=== PATIENT | female | born 1995 | race Caucasian/White ===

== ENCOUNTER 2017-02-25 14:19 | Inpatient (IN) | payer MEDICAID ==
[2017-02-25] MEDS ORDERED: Ondansetron 4 MG/2 ML SDV IV PRN (14:43)
[2017-02-25] MEDS ORDERED: Methylergonovine 0.2 MG/1 ML Amp IM PRN (14:43)
[2017-02-25] MEDS ORDERED: Carboprost Tromethamine 250 MCG/1 ML Amp IM PRN (14:43)
[2017-02-25] MEDS ORDERED: Lactated Ringers 500 ML IV ONE (14:43)
[2017-02-25] MEDS ORDERED: Sodium Chloride 0.9% 10 ML Syringe FLUSH PRN (14:43)
[2017-02-25] MEDS ORDERED: Misoprostol 400 MCG (4 X 100 MCG TAB) RECTAL PRN (14:43)
[2017-02-25] MEDS ORDERED: Lidocaine 1% 30 ML SDV INJECT PRN (14:43)
[2017-02-25] MEDS ORDERED: Acetaminophen 325 MG Tab PO PRN (14:43)
[2017-02-25] MEDS: Lactated Ringers 1,000 ML IV SCH ×2 (14:50→17:49)
[2017-02-25] MEDS ORDERED: Penicillin G Potassium 5 MILLUNITS in Sodium Chloride 0.9% 100 ML IV ONE (16:00)
[2017-02-25] MEDS ORDERED: Oxytocin/Normal Saline 30 UNIT/500 ML BAG IV SCH (16:15)
--- NOTE | 2017-02-25 18:17 | PCM.SN ---
- Free Text/Narrative Note: Labor and Delivery Admission H & P Admitting Physician: Dr. IRENE VU MD Personal Physician: Dr. IRENE UV MD Date: 02/25/2017 Subjective: C/C: Loss of fluids HPI: Marsha Gill is a 21 y.o. at 39w0d who presents today with the complaint of loss of fluids at 2:17 pm today. Fluids were clear. She denies vaginal bleeding. She lost her mucous plug on Thursday. She denies contractions. Baby is moving well. She denies headache, vision changes, SOB, chest pain, RUQ pain, or GI complaints. Labs: Maternal blood type O pos Antibody screen: negative Hepatitis B negative HIV negative Rubella: Immune RPR non reactive GC/Chlamydia negative GBS positive Glucose 28 weeks: 118 at 1 hr care: good. complications: none OB History Para Term AB Living 2 1 1 1 SAB TAB Ectopic Multiple Live Births 0 1 Past Medical History: Diagnosis Date Anxiety with depression Zoloft made things worse. Not on meds currently. Body piercing Ears, lip. No IVDU, no transfusions. Tattoos x2. Former smoker 09/27/2016 Quit smoking in her second . History of chicken pox As a child Puberty Menarche age 10. Q 28-32 days. Flow 7d. No past surgical history on file. No Known Allergies Social History Social History Marital status: Spouse name: N/A Number of children: N/A Years of education: N/A Occupational History Not on file. Social History Main Topics Smoking status: Former Smoker Packs/day: 0.50 Years: 2.00 Types: Cigarettes Quit date: 09/22/2016 Smokeless tobacco: Never Used Comment: Only a couple puffs here and there, trying to quit. Alcohol use Yes Comment: Not during . Drug use: Unknown Sexual activity: Yes Partners: Male Other Topics Concern Not on file Social History Narrative 09/26/16 to [place]. They moved here in June 2014 from [place] for lower cost of living and work opportunities. Marsha stays at home with their son , Rene born 04/13/14. 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 Nilton has panic attacks, fainting spells when he relaxes, migraines. His mother hs Theron's thyroiditis and his grandmother had thyroid cancer, he has 2 cousins with brain cancer, diabetes and heart disease also run in his family. They are expecting their second child together. Trying to quit smoking. Alcohol exposure once when she was about 2-3 weeks along she had about 6 drinks. 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 No Known Diseases Father Other Sister PCOS No Known Diseases Brother Cancer Maternal Grandmother Hogkin's lymphpma Other Maternal Grandfather [place]helomia Lung Cancer Paternal Grandmother not a smoker No Known Diseases Sister No Known Diseases Sister Other Cousin Autistic. Defects Neg Hx Multiple Births Neg Hx Anesth Problems Neg Hx Cystic Fibrosis Neg Hx Seizures Neg Hx Bleeding Prob Neg Hx Clotting Disorder Neg Hx Review of Systems Constitutional: negative for chills and fevers HEENT: negative for vision changes, headache, nasal congestion, cough, sore throat Respiratory: negative for cough, sputum and shortness of breath Cardiovascular: negative for chest pain, chest pressure/discomfort, lower extremity swelling, redness, or pain. Gastrointestinal: negative for epigastric pain, abdominal pain, change in bowel habits, nausea and vomiting Genitourinary: negative for dysuria, frequency and hematuria Behavioral/Psych: negative for anxiety and depression. Objective: Vitals: LMP 06/11/2016 (Exact Date), BP 125/65, pulse 73, RR 16, Temp 98.6 F General: alert, oriented, no acute distress Lungs: clear to auscultation bilaterally. No wheezing or rales Heart: regular rate and rhythm, no murmur, rub or gallop Abdomen: gravid, non-tender, non distended, bowel sounds present Extremities: Trace edema FHT: 125 BPM, moderate variability, accelerations present, no decelerations Primrose: contractions every 2 to 3 minutes. Presentation: Cephalic Cervix: Dilation: 3 cm Effacement: 25% Assessment: 21 y.o. at 39w0d with SROM. GBS positive FHR: Category I Patient Active Problem List Neck pain Uterine size date discrepancy, second trimester Encounter for supervision of other normal , third trimester GBS (group B Streptococcus carrier), +RV culture, currently Plan: Admit to L&D for induction of labor in normal term due to SROM. Anticipate . Penicillin for GBS status. The patient was staffed with MD VELIA COREAS MD, PGY 3, [facility] 02/25/2017 5:39 PM
[2017-02-25] MEDS: Penicillin G Potassium 3 MILLUNITS in Sodium Chloride 0.9% 100 ML IV SCH (20:19)
[2017-02-26] MEDS: Penicillin G Potassium 3 MILLUNITS in Sodium Chloride 0.9% 100 ML IV SCH ×2 (00:12→04:00)
[2017-02-26] MEDS ORDERED: fentaNYL 100 MCG/2 ML SDV ONE (00:13)
--- NOTE | 2017-02-26 00:36 | PCM.SN ---
- Free Text/Narrative Note: Intrathecal. Sitting position, sterile prep and drape. 1% lidocaine w bicarb for skinwheal to L3 L4 interspace. Introducer, 24 ga pencan x 1. Pos CSF, neg heme, neg parasthesia. 20 mcg PF sufenta, 30 mcg pf fentanyl, 0.4 ml pf ns and 6 mg of 0.75% pf bupivacaine injected after CSF aspiration. Pt to L lateral position Procedure time 0015 to 0040
[2017-02-26] MEDS ORDERED: Aluminum Hydroxide/Magnesium Hydroxide/Simethicone Susp 30 ML Cup PO PRN (02:17)
[2017-02-26] MEDS ORDERED: Misoprostol 400 MCG (4 X 100 MCG TAB) RECTAL PRN (02:17)
[2017-02-26] MEDS ORDERED: Sodium Chloride 0.9% 10 ML Syringe FLUSH PRN (02:17)
[2017-02-26] MEDS ORDERED: Zolpidem 5 MG Tab PO PRN (02:17)
[2017-02-26] MEDS ORDERED: Benzocaine/Menthol 20%-0.5% Spray 56 GM Canister TOP PRN (02:17)
[2017-02-26] MEDS ORDERED: Acetaminophen 325 MG Tab PO PRN (02:17)
[2017-02-26] MEDS ORDERED: Simethicone 80 MG Tab.Chew PO PRN (02:17)
[2017-02-26] MEDS ORDERED: Carboprost Tromethamine 250 MCG/1 ML Amp IM PRN (02:17)
--- NOTE | 2017-02-26 02:34 | PCM.DEL ---
<Chante Mota - Last Filed: 02/26/17 02:28> L & D Note - General Info Date of Service: 02/26/17 Mother's Due Date: 03/04/17 - Delivery Note Labor: Spontaneous Delivery Outcome: Livebirth Delivery Method: Spontaneous Vaginal Delivery-Single Infant Delivery Mode: Spontaneous Presentation: Right Occiput Anterior (SRIKANTH) Nuchal Cord: None Prep: Povidone-Iodine (Betadine Anesthesia Type: Intrathecal Amniotic Fluid Description: Clear Laceration: 2nd Degree (left perineal, and small right labial closed with figure 8, left labial closed with running. ) Suture type: Vicryl Suture size: 3-0 Placenta: Intact, Spontaneous Cord: 3 Vessels Estimated Blood Loss: 250 Resuscitation Needed: No Steptoe: Bulb Syringe, Stimulated, Jerome Used Provider: Sil Chew Score 1 min: 8 Score 5 min: 9 Second Stage Interventions: Reports: Encouragement Given, Pushing Effectively, Pushing, Feet in Foot Rests Delivery Comments (Free Text/Narrative):: Marsha Gill is a 21 year old female G2 now P2 at 39w1d who presented with spontaneous ROM with clear fluids on 02/25/17 at about 14:17. Category 1 tracing on admission. She was dilated to 3 cm on admission. She progressed to complete dilation by 0105 on 02/26/17, with augmentation of pitocin. She began pushing at about 0115. Delivered a liveborn female infant from the SRIKANTH position , after pushing about 5 times, over 2nd degree perineal laceration on the left of midline. A left labial tear and right vaginal laceration were also present. Vigorous with spontaneous cry. Placenta delivered spontaneously intact with a 3 vessel cord. IV Pitocin was started shortly after delivery of placenta. EBL 250 mL. 2nd degree perineal laceration repaired with 3-0 Vicryl suture. Left labial laceration repaired with simple running suture. Small right vaginal laceration closed with figure of 8 stitch. Hemostasis confirmed. Mother and doing well. - Patient Data Vitals - Most Recent: Last Vital Signs Temp 98.7 F 02/25/17 19:20 Pulse 76 02/25/17 21:20 Resp 14 02/25/17 20:20 BP 134/75 02/25/17 21:20 Pulse Ox Weight - Most Recent: 99.79 kg I&O - Last 24 Hours: Intake & Output 02/25/17 02/25/17 02/26/17 14:59 22:59 06:59 Intake Total 1500 Balance 1500 Lab Results Last 24 Hours: Laboratory Results - last 24 hr 02/25/17 Range/Units 15:00 WBC 11.0 H (5.0-10.0) 10^3/uL RBC 4.03 L (4.2-5.4) 10^6/uL Hgb 12.0 (12.0-16.0) g/dL Hct 36.5 L (37.0-47.0) % MCV 90.6 (80-100) fL MCH 29.8 (27.0-34.0) pg MCHC 32.9 L (33.0-35.0) g/dL Plt Count 204 (150-450) 10^3/uL Med Orders - Current: Current Medications Acetaminophen (Tylenol) 650 mg PO Q4H PRN PRN Reason: Pain (Mild 1-3) and fever Carboprost Tromethamine (Hemabate Ds) 250 mcg IM ASDIRECTED PRN PRN Reason: HEMORRHAGE Lactated Ringer's (Ringers, Lactated) 1,000 mls @ 125 mls/hr IV ASDIRECTED LUCRETIA Last Admin: 02/25/17 17:49 Dose: 125 mls/hr Penicillin G Potassium 3 (millunits/ Sodium Chloride) 100 mls @ 200 mls/hr IV Q4H LUCRETIA Last Admin: 02/26/17 00:12 Dose: 200 mls/hr Oxytocin/Sodium Chloride (Pitocin In Ns 30 Unit/500 Ml) 30 unit in 500 mls @ 2 mls/hr IV TITRATE LUCRETIA; 2 MUNITS/MIN PRN Reason: Protocol Last Titration: 02/26/17 02:20 Dose: 125 mls/hr Lidocaine HCl (Xylocaine-Mpf 1%) 10 ml INJECT ASDIRECTED PRN PRN Reason: Perineal Repair Methylergonovine Maleate (Methergine) 0.2 mg IM ASDIRECTED PRN PRN Reason: Hemorrhage Misoprostol (Cytotec) 800 mcg RECTAL ASDIRECTED PRN PRN Reason: Hemorrhage Ondansetron HCl (Zofran) 4 mg IV Q4H PRN PRN Reason: Nausea/Vomiting Last Admin: 02/26/17 00:00 Dose: 4 mg Sodium Chloride (Saline Flush) 10 ml FLUSH ASDIRECTED PRN PRN Reason: Keep Vein Open Discontinued Medications Fentanyl (Sublimaze) Confirm Administered Dose 100 mcg .ROUTE .STK-MED ONE Stop: 02/26/17 00:14 Last Admin: 02/26/17 00:24 Dose: 100 mcg Lactated Ringer's (Ringers, Lactated) 500 mls @ 999 mls/hr IV .BOLUS ONE Stop: 02/25/17 15:13 Last Admin: 02/26/17 00:17 Dose: 999 mls/hr Penicillin G Potassium 5 (millunits/ Sodium Chloride) 100 mls @ 200 mls/hr IV ONETIME ONE Stop: 02/25/17 16:29 Last Admin: 02/25/17 15:59 Dose: 200 mls/hr Sufentanil Citrate (Sufenta) Confirm Administered Dose 50 mcg .ROUTE .STK-MED ONE Stop: 02/26/17 00:14 - Problem List & Annotations (1) (normal spontaneous vaginal delivery) SNOMED Code(s): 10921610 Code(s): O80 - ENCOUNTER FOR FULL-TERM UNCOMPLICATED DELIVERY Status: Acute (2) Perineal laceration during delivery, delivered SNOMED Code(s): 605014685 Code(s): O70.9 - PERINEAL LACERATION DURING DELIVERY, UNSPECIFIED Status: Acute - Problem List Review Problem List Initiated/Reviewed/Updated: Yes - My Orders Last 24 Hours: My Active Orders 02/26/17 02:13 Patient Status Manage Transfer [TRANSFER] Routine 02/26/17 02:17 Notify Provider Vital Signs OB [RC] ASDIRECTED Up ad Carol [RC] ASDIRECTED Vital Signs [RC] PFP Consult to Lead Ios Developer [CONS] Routine Acetaminophen [Tylenol] 650 mg PO Q6H PRN Alum Hydrox/Mag Hydrox/Simeth [Mag-Al Plus] 30 ml PO Q8H PRN Benzocaine/Menthol [Dermoplast Pain Relief Forreston] See Dose Instructions TOP Q4H PRN Carboprost Tromethamine [Hemabate DS] 250 mcg IM ASDIRECTED PRN Docusate Sodium [Colace] 100 mg PO BID PRN Ibuprofen [Motrin] 800 mg PO Q8H PRN Misoprostol [Cytotec] 800 mcg RECTAL ONETIME PRN Simethicone 80 mg PO Q4H PRN Sodium Chloride 0.9% [Saline Flush] 10 ml FLUSH ASDIRECTED PRN Zolpidem [Ambien] 5 mg PO BEDTIME PRN Assess Lochia [WOMSER] Per Unit Routine Assess Uterine Involution [WOMSER] Per Unit Routine Breast Pump [WOMSER] Per Unit Routine Ice Therapy [OM.PC] Per Unit Routine Perineal Care [OM.PC] Per Unit Routine Saline Lock Insert [OM.PC] Urgent Sitz Bath [OM.PC] Per Unit Routine Resuscitation Status Routine 02/26/17 09:00 Vit with Ca/FA/Iron [ Plus Iron] 1 each PO DAILY 02/26/17 Dinner Regular Diet [DIET] 02/27/17 08:00 CBC W/O DIFF,HEMOGRAM [HEME] Routine <Sil Nuñez - Last Filed: 03/02/17 22:27> - Patient Data Vitals - Most Recent: Last Vital Signs Temp 98.7 F 02/27/17 08:00 Pulse 92 02/27/17 08:00 Resp 18 02/27/17 08:00 BP 121/59 L 02/27/17 08:00 Pulse Ox 100 02/27/17 08:00 Med Orders - Current: Current Medications Discontinued Medications Acetaminophen (Tylenol) 650 mg PO Q4H PRN PRN Reason: Pain (Mild 1-3) and fever Acetaminophen (Tylenol) 650 mg PO Q6H PRN PRN Reason: mild pain or fever Al Hydroxide/Mg Hydroxide (Mag-Al Plus) 30 ml PO Q8H PRN PRN Reason: Heartburn Benzocaine/Menthol (Dermoplast Pain Relief Forreston) 0 gm TOP Q4H PRN PRN Reason: Perineal comfort measures Last Admin: 02/26/17 08:42 Dose: 1 applic Carboprost Tromethamine (Hemabate Ds) 250 mcg IM ASDIRECTED PRN PRN Reason: HEMORRHAGE Carboprost Tromethamine (Hemabate Ds) 250 mcg IM ASDIRECTED PRN PRN Reason: Excessive vaginal bleeding Docusate Sodium (Colace) 100 mg PO BID PRN PRN Reason: Constipation Last Admin: 02/27/17 08:24 Dose: 100 mg Fentanyl (Sublimaze) Confirm Administered Dose 100 mcg .ROUTE .STK-MED ONE Stop: 02/26/17 00:14 Last Admin: 02/26/17 00:24 Dose: 100 mcg Fentanyl (Sublimaze) 30 mcg ITHECAL .STK-MED ONE Stop: 02/27/17 11:30 Lactated Ringer's (Ringers, Lactated) 500 mls @ 999 mls/hr IV .BOLUS ONE Stop: 02/25/17 15:13 Last Admin: 02/26/17 00:17 Dose: 999 mls/hr Lactated Ringer's (Ringers, Lactated) 1,000 mls @ 125 mls/hr IV ASDIRECTED LUCRETIA Last Admin: 02/25/17 17:49 Dose: 125 mls/hr Penicillin G Potassium 3 (millunits/ Sodium Chloride) 100 mls @ 200 mls/hr IV Q4H LUCRETIA Last Admin: 02/26/17 04:00 Dose: Not Given Penicillin G Potassium 5 (millunits/ Sodium Chloride) 100 mls @ 200 mls/hr IV ONETIME ONE Stop: 02/25/17 16:29 Last Admin: 02/25/17 15:59 Dose: 200 mls/hr Oxytocin/Sodium Chloride (Pitocin In Ns 30 Unit/500 Ml) 30 unit in 500 mls @ 2 mls/hr IV TITRATE LUCRETIA; 2 MUNITS/MIN PRN Reason: Protocol Last Titration: 02/26/17 03:16 Dose: Infused Ibuprofen (Motrin) 800 mg PO Q8H PRN PRN Reason: Mild Pain or Fever Last Admin: 02/27/17 08:24 Dose: 800 mg Lidocaine HCl (Xylocaine-Mpf 1%) 10 ml INJECT ASDIRECTED PRN PRN Reason: Perineal Repair Methylergonovine Maleate (Methergine) 0.2 mg IM ASDIRECTED PRN PRN Reason: Hemorrhage Misoprostol (Cytotec) 800 mcg RECTAL ASDIRECTED PRN PRN Reason: Hemorrhage Misoprostol (Cytotec) 800 mcg RECTAL ONETIME PRN PRN Reason: Hemorrhage Ondansetron HCl (Zofran) 4 mg IV Q4H PRN PRN Reason: Nausea/Vomiting Last Admin: 02/26/17 00:00 Dose: 4 mg Prenat Multivit/[place]/Iron/Folic Ac ( Plus Iron) 1 each PO DAILY LUCRETIA Last Admin: 02/27/17 08:24 Dose: 1 each Simethicone (Simethicone) 80 mg PO Q4H PRN PRN Reason: Gas Sodium Chloride (Saline Flush) 10 ml FLUSH ASDIRECTED PRN PRN Reason: Keep Vein Open Sodium Chloride (Saline Flush) 10 ml FLUSH ASDIRECTED PRN PRN Reason: Keep Vein Open Sufentanil Citrate (Sufenta) Confirm Administered Dose 50 mcg .ROUTE .STK-MED ONE Stop: 02/26/17 00:14 Last Admin: 02/27/17 10:36 Dose: Not Given Sufentanil Citrate (Sufenta) 20 mcg ITHECAL .STK-MED ONE Stop: 02/27/17 11:30 Zolpidem Tartrate (Ambien) 5 mg PO BEDTIME PRN PRN Reason: Insomnia - Plan Plan:: Patient seen and examined. Agree with note by Dr. Mota written on my behalf. - [facility] 03/02/17 [id number].
[2017-02-26] MEDS: Ibuprofen 800 MG Tab PO PRN ×2 (06:33→20:09)
[2017-02-26] MEDS: Prenatal Multivitamin with Calcium/Folic Acid/Iron Tab PO SCH (08:42)
[2017-02-26] MEDS: Docusate Sodium 100 MG Cap PO PRN ×2 (08:42→20:09)
[2017-02-27] MEDS: Ibuprofen 800 MG Tab PO PRN (08:24)
[2017-02-27] MEDS: Prenatal Multivitamin with Calcium/Folic Acid/Iron Tab PO SCH (08:24)
[2017-02-27] MEDS: Docusate Sodium 100 MG Cap PO PRN (08:24)
[2017-02-27] MEDS ORDERED: fentaNYL 100 MCG/2 ML SDV ITHECAL ONE (11:29)
--- NOTE | 2017-02-28 12:59 | PCM.SN ---
<Chante Teixeira - Last Filed: 02/28/17 13:00> - Free Text/Narrative Note: Obstetrics Progress Note Post Day Number 1 Patient: Marsha Gill Admit Date: 02/25/17 Today's Date: 02/27/17 Subjective: Marsha Gill is a 21 y.o. female who is day 1 s/p . She is ambulating, voiding, tolerating regular diet all without difficulty. She reports her lochia is minimal in degree . She is . She is up and ambulating well, tolerating PO intake and using the bathroom, good bowel sounds and passing gas, and bowel movement at this time. She has no complaints. Objective: Vitals: BP 121/59, Pulse 92, RR 18, Temp 98.7 F General: healthy, alert, no distress, cooperative, smiling Lungs: clear to auscultation bilaterally Heart: regular rate and rhythm, S1, S2 normal, no murmur, click, rub or gallop Abdomen: soft, non-tender; bowel sounds normal; no masses, no organomegaly Uterus is Firm, nontender at 1 cm below the umbilicus. Lower extremities are nontender and have trace edema. Skin: is warm and dry, well perfused no visible lesions Lab Results: Hgb 10.9 PLT 206 RPR: non reactive Rubella: Immune GBS: positive Hbs: negative Assessment/Plan: Patient is stable and comfortable, no acute distress. She is day number one status post normal spontaneous vaginal delivery. No signs of anemia as her last Hb was 10.9 and she is completely asymptomatic. Plan will be to encourage ambulation. Advance diet as tolerated. Saline lock IV with good oral intake. Continue with advancing routine post cares. Plan for discharge today. Other possible issues to note: Perineal laceration, 2nd degree - repaired CHANTE TEIXEIRA MD, PGY 3, [facility] <Sil Nuñez - Last Filed: 03/02/17 22:28> - Free Text/Narrative Note: Patient seen and examined. Agree with note by Dr. Teixeira written on my behalf. - [facility] 03/02/17 [id number]
--- NOTE | 2017-02-28 13:08 | PCM.DCSUM1 ---
<Chante Mota - Last Filed: 02/28/17 13:04> Discharge Summary - Hospital Course Free Text/Narrative:: Marsha Gill is a 21 year old female at 39w1d who presented with spontaneous ROM with clear fluids on 02/25/17 at about 14:17. Category 1 tracing on admission. She was dilated to 3 cm on admission. She progressed to complete dilation by 0105 on 02/26/17, with augmentation of pitocin. She began pushing at about 0115. Delivered a liveborn female from the SRIKANTH position , after pushing about 5 times, over 2nd degree perineal laceration on the left of midline. A left labial tear and right vaginal laceration were also present. Vigorous with spontaneous cry. Placenta delivered spontaneously intact with a 3 vessel cord. IV Pitocin was started shortly after delivery of placenta. EBL 250 mL. 2nd degree perineal laceration repaired with 3-0 Vicryl suture. Left labial laceration repaired with simple running suture. Small right vaginal laceration closed with figure of 8 stitch. Hemostasis confirmed. Mother and infant doing well. - Discharge Data Discharge Date: 02/27/17 Discharge Disposition: Home, Self-Care 01 Condition: Good - Discharge Diagnosis/Problem(s) (1) (normal spontaneous vaginal delivery) SNOMED Code(s): 94870924 ICD Code: O80 - ENCOUNTER FOR FULL-TERM UNCOMPLICATED DELIVERY Status: Acute (2) Perineal laceration during delivery, delivered SNOMED Code(s): 217855416 ICD Code: O70.9 - PERINEAL LACERATION DURING DELIVERY, UNSPECIFIED Status: Acute - Patient Summary/Data Consults: Consultations 02/26/17 02:17 Consult to Heel Seat Pounder [CONS] Routine - Patient Instructions Diet: Heart Healthy Diet Activity: As Tolerated Activity, Other: pelvic rest for 6-8 weeks Driving: May Drive Today Showering/Bathing: May Shower Notify Provider of: Fever, Increased Pain, Swelling and Redness, Drainage, Nausea and/or Vomiting - Discharge Plan Home Medications: Home Meds Pnv No.122/Iron/Folic Acid [ Multi Tablet] 1 tab PO DAILY 02/22/17 [ History] Patient Handouts: Home Care Instructions for Mom, Vaginal Delivery, Care After Referrals: Sil Nuñez MD [Primary Care Provider] - (Need to schedule 6 week post- follow-up appointment) - General Info Functional Status: Reports: Pain Controlled - Review of Systems General: Reports: No Symptoms HEENT: Reports: No Symptoms Pulmonary: Reports: No Symptoms Cardiovascular: Reports: No Symptoms Gastrointestinal: Reports: No Symptoms Genitourinary: Reports: No Symptoms - Patient Data Vitals - Most Recent: Last Vital Signs Temp 98.7 F 02/27/17 08:00 Pulse 92 02/27/17 08:00 Resp 18 02/27/17 08:00 BP 121/59 L 02/27/17 08:00 Pulse Ox 100 02/27/17 08:00 Weight - Most Recent: 99.79 kg Med Orders - Current: Current Medications Discontinued Medications Acetaminophen (Tylenol) 650 mg PO Q4H PRN PRN Reason: Pain (Mild 1-3) and fever Acetaminophen (Tylenol) 650 mg PO Q6H PRN PRN Reason: mild pain or fever Al Hydroxide/Mg Hydroxide (Mag-Al Plus) 30 ml PO Q8H PRN PRN Reason: Heartburn Benzocaine/Menthol (Dermoplast Pain Relief [place]) 0 gm TOP Q4H PRN PRN Reason: Perineal comfort measures Last Admin: 02/26/17 08:42 Dose: 1 applic Carboprost Tromethamine (Hemabate Ds) 250 mcg IM ASDIRECTED PRN PRN Reason: HEMORRHAGE Carboprost Tromethamine (Hemabate Ds) 250 mcg IM ASDIRECTED PRN PRN Reason: Excessive vaginal bleeding Docusate Sodium (Colace) 100 mg PO BID PRN PRN Reason: Constipation Last Admin: 02/27/17 08:24 Dose: 100 mg Fentanyl (Sublimaze) Confirm Administered Dose 100 mcg .ROUTE .STK-MED ONE Stop: 02/26/17 00:14 Last Admin: 02/26/17 00:24 Dose: 100 mcg Fentanyl (Sublimaze) 30 mcg ITHECAL .STK-MED ONE Stop: 02/27/17 11:30 Lactated Ringer's (Ringers, Lactated) 500 mls @ 999 mls/hr IV .BOLUS ONE Stop: 02/25/17 15:13 Last Admin: 02/26/17 00:17 Dose: 999 mls/hr Lactated Ringer's (Ringers, Lactated) 1,000 mls @ 125 mls/hr IV ASDIRECTED LUCRETIA Last Admin: 02/25/17 17:49 Dose: 125 mls/hr Penicillin G Potassium 3 (millunits/ Sodium Chloride) 100 mls @ 200 mls/hr IV Q4H LUCRETIA Last Admin: 02/26/17 04:00 Dose: Not Given Penicillin G Potassium 5 (millunits/ Sodium Chloride) 100 mls @ 200 mls/hr IV ONETIME ONE Stop: 02/25/17 16:29 Last Admin: 02/25/17 15:59 Dose: 200 mls/hr Oxytocin/Sodium Chloride (Pitocin In Ns 30 Unit/500 Ml) 30 unit in 500 mls @ 2 mls/hr IV TITRATE LUCRETIA; 2 MUNITS/MIN PRN Reason: Protocol Last Titration: 02/26/17 03:16 Dose: Infused Ibuprofen (Motrin) 800 mg PO Q8H PRN PRN Reason: Mild Pain or Fever Last Admin: 02/27/17 08:24 Dose: 800 mg Lidocaine HCl (Xylocaine-Mpf 1%) 10 ml INJECT ASDIRECTED PRN PRN Reason: Perineal Repair Methylergonovine Maleate (Methergine) 0.2 mg IM ASDIRECTED PRN PRN Reason: Hemorrhage Misoprostol (Cytotec) 800 mcg RECTAL ASDIRECTED PRN PRN Reason: Hemorrhage Misoprostol (Cytotec) 800 mcg RECTAL ONETIME PRN PRN Reason: Hemorrhage Ondansetron HCl (Zofran) 4 mg IV Q4H PRN PRN Reason: Nausea/Vomiting Last Admin: 02/26/17 00:00 Dose: 4 mg Prenat Multivit/Biological Photographer/Iron/Folic Ac ( Plus Iron) 1 each PO DAILY [facility] Last Admin: 02/27/17 08:24 Dose: 1 each Simethicone (Simethicone) 80 mg PO Q4H PRN PRN Reason: Gas Sodium Chloride (Saline Flush) 10 ml FLUSH ASDIRECTED PRN PRN Reason: Keep Vein Open Sodium Chloride (Saline Flush) 10 ml FLUSH ASDIRECTED PRN PRN Reason: Keep Vein Open Sufentanil Citrate (Sufenta) Confirm Administered Dose 50 mcg .ROUTE .STK-MED ONE Stop: 02/26/17 00:14 Last Admin: 02/27/17 10:36 Dose: Not Given Sufentanil Citrate (Sufenta) 20 mcg ITHECAL .STK-MED ONE Stop: 02/27/17 11:30 Zolpidem Tartrate (Ambien) 5 mg PO BEDTIME PRN PRN Reason: Insomnia - Exam General: Reports: Alert, Oriented HEENT: Reports: Pupils Equal, Pupils Reactive, EOMI, Mucous Membr. Moist/[place] Neck: Reports: Supple Lungs: Reports: Clear to Auscultation, Normal Respiratory Effort Cardiovascular: Reports: Regular Rate, Regular Rhythm GI/Abdominal Exam: Normal Bowel Sounds, Soft, Non-Tender, No Distention, Other ( uterus firm, non tender, at 3 cm below umbilicus ) Skin: Reports: Warm, Dry, Intact Psy/Mental Status: Reports: Alert, Normal Affect, Normal Mood *Q Meaningful Use (DIS) - VTE *Q VTE Criteria *Q: - Stroke *Q Stroke Criteria *Q: - AMI *Q AMI Criteria *Q: <Sil Nuñez - Last Filed: 03/02/17 22:30> Discharge Summary - Patient Summary/Data Consults: Consultations 02/26/17 02:17 Consult to Heel Seat Pounder [CONS] Routine - Discharge Summary/Plan Comment Discharge Summary/Plan Comment: Patient seen and examined. Agree with note by Dr. Mota written on my behalf. - [facility] 03/02/[id number] - Patient Data Vitals - Most Recent: Last Vital Signs Temp 98.7 F 02/27/17 08:00 Pulse 92 02/27/17 08:00 Resp 18 02/27/17 08:00 BP 121/59 L 02/27/17 08:00 Pulse Ox 100 02/27/17 08:00 Med Orders - Current: Current Medications Discontinued Medications Acetaminophen (Tylenol) 650 mg PO Q4H PRN PRN Reason: Pain (Mild 1-3) and fever Acetaminophen (Tylenol) 650 mg PO Q6H PRN PRN Reason: mild pain or fever Al Hydroxide/Mg Hydroxide (Mag-Al Plus) 30 ml PO Q8H PRN PRN Reason: Heartburn Benzocaine/Menthol (Dermoplast Pain Relief [place]) 0 gm TOP Q4H PRN PRN Reason: Perineal comfort measures Last Admin: 02/26/17 08:42 Dose: 1 applic Carboprost Tromethamine (Hemabate Ds) 250 mcg IM ASDIRECTED PRN PRN Reason: HEMORRHAGE Carboprost Tromethamine (Hemabate Ds) 250 mcg IM ASDIRECTED PRN PRN Reason: Excessive vaginal bleeding Docusate Sodium (Colace) 100 mg PO BID PRN PRN Reason: Constipation Last Admin: 02/27/17 08:24 Dose: 100 mg Fentanyl (Sublimaze) Confirm Administered Dose 100 mcg .ROUTE .STK-MED ONE Stop: 02/26/17 00:14 Last Admin: 02/26/17 00:24 Dose: 100 mcg Fentanyl (Sublimaze) 30 mcg ITHECAL .STK-MED ONE Stop: 02/27/17 11:30 Lactated Ringer's (Ringers, Lactated) 500 mls @ 999 mls/hr IV .BOLUS ONE Stop: 02/25/17 15:13 Last Admin: 02/26/17 00:17 Dose: 999 mls/hr Lactated Ringer's (Ringers, Lactated) 1,000 mls @ 125 mls/hr IV ASDIRECTED LUCRETIA Last Admin: 02/25/17 17:49 Dose: 125 mls/hr Penicillin G Potassium 3 (millunits/ Sodium Chloride) 100 mls @ 200 mls/hr IV Q4H LUCRETIA Last Admin: 02/26/17 04:00 Dose: Not Given Penicillin G Potassium 5 (millunits/ Sodium Chloride) 100 mls @ 200 mls/hr IV ONETIME ONE Stop: 02/25/17 16:29 Last Admin: 02/25/17 15:59 Dose: 200 mls/hr Oxytocin/Sodium Chloride (Pitocin In Ns 30 Unit/500 Ml) 30 unit in 500 mls @ 2 mls/hr IV TITRATE LUCRETIA; 2 MUNITS/MIN PRN Reason: Protocol Last Titration: 02/26/17 03:16 Dose: Infused Ibuprofen (Motrin) 800 mg PO Q8H PRN PRN Reason: Mild Pain or Fever Last Admin: 02/27/17 08:24 Dose: 800 mg Lidocaine HCl (Xylocaine-Mpf 1%) 10 ml INJECT ASDIRECTED PRN PRN Reason: Perineal Repair Methylergonovine Maleate (Methergine) 0.2 mg IM ASDIRECTED PRN PRN Reason: Hemorrhage Misoprostol (Cytotec) 800 mcg RECTAL ASDIRECTED PRN PRN Reason: Hemorrhage Misoprostol (Cytotec) 800 mcg RECTAL ONETIME PRN PRN Reason: Hemorrhage Ondansetron HCl (Zofran) 4 mg IV Q4H PRN PRN Reason: Nausea/Vomiting Last Admin: 02/26/17 00:00 Dose: 4 mg Prenat Multivit/Meagher/Iron/Folic Ac ( Plus Iron) 1 each PO DAILY LUCRETIA Last Admin: 02/27/17 08:24 Dose: 1 each Simethicone (Simethicone) 80 mg PO Q4H PRN PRN Reason: Gas Sodium Chloride (Saline Flush) 10 ml FLUSH ASDIRECTED PRN PRN Reason: Keep Vein Open Sodium Chloride (Saline Flush) 10 ml FLUSH ASDIRECTED PRN PRN Reason: Keep Vein Open Sufentanil Citrate (Sufenta) Confirm Administered Dose 50 mcg .ROUTE .STK-MED ONE Stop: 02/26/17 00:14 Last Admin: 02/27/17 10:36 Dose: Not Given Sufentanil Citrate (Sufenta) 20 mcg ITHECAL .STK-MED ONE Stop: 02/27/17 11:30 Zolpidem Tartrate (Ambien) 5 mg PO BEDTIME PRN PRN Reason: Insomnia *Q Meaningful Use (DIS) - VTE *Q VTE Criteria *Q: - Stroke *Q Stroke Criteria *Q: - AMI *Q AMI Criteria *Q:
== END 2017-02-27 11:30 | disposition home or self-care (01) | DRG 775 ==
LOC: DL.OBCHECK 14:19 → DL.OB 21:04 → OBSVTOIN 02-26 01:21
PROVIDERS: ADMIT Family Medicine; ATTEND Family Medicine
PROC: 10E0XZZ Delivery of Products of Conception, External Approach (ICD-10-PCS; principal; 2017-02-26)
PROC: 0KQM0ZZ Repair Perineum Muscle, Open Approach (ICD-10-PCS; 2017-02-26)
PROC: 00HU33Z Insertion of Infusion Device into Spinal Canal, Percutaneous Approach (ICD-10-PCS; 2017-02-26)
PROC: 3E0R3BZ Introduction of Anesthetic Agent into Spinal Canal, Percutaneous Approach (ICD-10-PCS; 2017-02-26)
DX: O42.02 Full-term premature rupture of membranes, onset of labor within 24 hours of rupture (principal); Z37.0 Single live birth; Z3A.39 39 weeks gestation of pregnancy; O99.824 Streptococcus B carrier state complicating childbirth; Z87.891 Personal history of nicotine dependence; O70.1 Second degree perineal laceration during delivery
CPT/HCPCS: 01967; 36415; 59300; 59409; 85027; A9270-GY; J2405; J2540; J2590; J3010; J7050; J7120

== ENCOUNTER 2017-06-05 12:38 | Emergency (ER) | payer SELFPAY ==
--- NOTE | 2017-06-05 12:53 | EDM.PDOC ---
ED HPI GENERAL MEDICAL PROBLEM - General Chief Complaint: Abdominal Pain Stated Complaint: [id number] SEVERE UPPER ABDOMINAL AND BACK PAIN Time Seen by Provider: 06/05/17 12:53 Source of Information: Reports: Patient, RN, RN Notes Reviewed History Limitations: Reports: No Limitations - History of Present Illness INITIAL COMMENTS - FREE TEXT/NARRATIVE: C/O 3 days duration of epigastric and RUQ abdominal pain that radiates to the Rt flank and Rt upper back. Pt reports nausea but no vomiting, and feels "hot & flushed" but not feverish, and denies chills. Denies urinary Sx's, diarrhea, constipation, or acid reflux. Pt went to the ER in [place] yesterday and had blood tests done and was told that her gallbladder and pancreas was normal. She states the provider there gave her a GI Cocktail and discharged her home, but the medicine did not change her pain. Onset: Gradual Onset Date: 06/02/17 Duration: Constant, Waxing/Waning Location: Reports: Abdomen Quality: Reports: Ache, Pressure Severity: Severe Improves with: Reports: None Worsens with: Reports: None Mid-Sternal Epigastric Pain Score (Numeric/FACES): 9 - Related Data Allergies Allergy/AdvReac Type Severity Reaction Status Date / Time No Known Allergies Allergy Verified 06/05/17 12:57 Home Meds: Home Meds Pnv No.122/Iron/Folic Acid [ Multi Tablet] 1 tab PO DAILY 02/22/17 [ History] Past Medical History HEENT History: Reports: None Cardiovascular History: Reports: None Respiratory History: Reports: None Gastrointestinal History: Reports: None Genitourinary History: Reports: None 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: Musculoskeletal History: Reports: None Neurological History: Reports: None Psychiatric History: Reports: Anxiety, Depression Endocrine/Metabolic History: Reports: None Hematologic History: Reports: None Immunologic History: Reports: None Oncologic (Cancer) History: Reports: None Dermatologic History: Reports: Other (See Below) Other Dermatologic History: piercings and tattoos - Infectious Disease History Infectious Disease History: Reports: Chicken Pox - Past Surgical History Head Surgeries/Procedures: Reports: None Social & Family History - Family History Family Medical History: Noncontributory - Tobacco Use Smoking Status *Q: Former Smoker Years of Tobacco use: 8 Packs/Tins Daily: 0.1 Used Tobacco, but Quit: Yes Month Tobacco Last Used: august 2016 - Caffeine Use Caffeine Use: Reports: Soda - Recreational Drug Use Recreational Drug Use: No - Living Situation & Occupation Living situation: Reports: with Family ED ROS GENERAL - Review of Systems Review Of Systems: ROS reveals no pertinent complaints other than HPI. ED EXAM, GI/ABD - Physical Exam Exam: See Below Exam Limited By: No Limitations General Appearance: Alert, WD/WN, No Apparent Distress, Obese Eyes: Bilateral: Normal Appearance (no scleral icterus) Nose: Normal Inspection Throat/Mouth: Normal Inspection, Normal Lips, Normal Teeth, Normal Gums, Normal Oropharynx, Normal Voice, No Airway Compromise Neck: Normal Inspection, Supple, Non-Tender, Full Range of Motion Respiratory/Chest: No Respiratory Distress, Lungs Clear, Normal Breath Sounds, No Accessory Muscle Use, Chest Non-Tender Cardiovascular: Regular Rate, Rhythm, No Edema, No Murmur GI/Abdominal Exam: Normal Bowel Sounds, Soft, No Distention, No Abnormal Bruit, Tender (to palpation at RUQ and epigastric region). No: Guarding, Rigid, Rebound (Female) Exam: Deferred Rectal (Female) Exam: Deferred Back Exam: Normal Inspection, Full Range of Motion. No: CVA Tenderness (L), CVA Tenderness (R) Extremities: Normal Inspection Neurological: Alert, Oriented, No Motor/Sensory Deficits Psychiatric: Normal Affect, Normal Mood Skin Exam: Warm, Dry, Intact, Normal Color, No Rash Course - Vital Signs Last Recorded V/S: Last Vital Signs Temp 36.3 C 06/05/17 12:48 Pulse 92 06/05/17 12:48 Resp 16 06/05/17 12:48 BP 111/67 06/05/17 12:48 Pulse Ox 100 06/05/17 12:48 - Orders/Labs/Meds Orders: Active Orders 24 hr Category Date Time Status Peripheral IV Care [RC] . DIRECTED Care 06/05/17 13:38 Active Peripheral IV Insertion Adult [OM.PC] Stat Oth 06/05/17 13:38 Ordered Labs: Laboratory Tests 06/05/17 06/05/17 06/05/17 Range/Units 13:48 13:48 13:55 WBC 13.4 H (5.0-10.0) 10^3/uL RBC 4.55 (4.2-5.4) 10^6/uL Hgb 13.4 D (12.0-16.0) g/dL Hct 39.9 (37.0-47.0) % MCV 87.7 D (80-100) fL MCH 29.5 (27.0-34.0) pg MCHC 33.6 (33.0-35.0) g/dL Plt Count 287 D (150-450) 10^3/uL Neut % (Auto) 66.3 (42.2-75.2) % Lymph % (Auto) 23.8 (20.5-50.1) % [place] % (Auto) 9.0 H (2-8) % Eos % (Auto) 0.7 L (1.0-3.0) % Baso % (Auto) 0.2 (0.0-1.0) % Sodium 136 (135-145) mmol/L Potassium 3.8 (3.6-5.0) mmol/L Chloride 102 (101-111) mmol/L Carbon Dioxide 25.0 (21.0-31.0) mmol/L Anion Gap 12.8 BUN 9 (7-18) mg/dL Creatinine 0.7 (0.6-1.3) mg/dL Est Cr Clr Drug Dosing 107.93 mL/min Estimated GFR (MDRD) > 60 BUN/Creatinine Ratio 12.85 Glucose 83 (74-105) mg/dL Calcium 9.3 (8.4-10.2) mg/dl Total Bilirubin 0.8 (0.2-1.0) mg/dL AST 17 (10-42) IU/L ALT 13 (10-60) IU/L Alkaline Phosphatase 87 (42-121) IU/L Total Protein 7.8 (6.7-8.2) g/dl Albumin 4.1 (3.2-5.5) g/dl Globulin 3.7 Albumin/Globulin Ratio 1.11 Amylase 42 (28-100) U/L Lipase 15 L (22-51) U/L Urine Color Yellow (YELLOW) Urine Appearance Cloudy (CLEAR) Urine pH 5.5 (5.0-9.0) Ur Specific [place] 1.025 (1.005-1.030) Urine Protein Negative (NEGATIVE) Urine Glucose (UA) Negative (NEGATIVE) Urine Ketones Trace H (NEGATIVE) Urine Occult Blood Trace-lysed H (NEGATIVE) Urine Nitrite Negative (NEGATIVE) Urine Bilirubin Negative (NEGATIVE) Urine Urobilinogen 0.2 (0.2-1.0) mg/dL Ur Leukocyte Esterase Trace H (NEGATIVE) Urine RBC 5-10 H /HPF Urine WBC 0-5 (0-5/HPF) /HPF Ur Epithelial Cells Few /HPF Amorphous Sediment Moderate H (0/HPF) /HPF Urine Bacteria Rare (0-FEW/HPF) /HPF Urine Mucus Moderate H /LPF Urine HCG, Qual 06/05/17 Range/Units 13:55 WBC (5.0-10.0) 10^3/uL RBC (4.2-5.4) 10^6/uL Hgb (12.0-16.0) g/dL Hct (37.0-47.0) % MCV (80-100) fL MCH (27.0-34.0) pg MCHC (33.0-35.0) g/dL Plt Count (150-450) 10^3/uL Neut % (Auto) (42.2-75.2) % Lymph % (Auto) (20.5-50.1) % [place] % (Auto) (2-8) % Eos % (Auto) (1.0-3.0) % Baso % (Auto) (0.0-1.0) % Sodium (135-145) mmol/L Potassium (3.6-5.0) mmol/L Chloride (101-111) mmol/L Carbon Dioxide (21.0-31.0) mmol/L Anion Gap BUN (7-18) mg/dL Creatinine (0.6-1.3) mg/dL Est Cr Clr Drug Dosing mL/min Estimated GFR (MDRD) BUN/Creatinine Ratio Glucose (74-105) mg/dL Calcium (8.4-10.2) mg/dl Total Bilirubin (0.2-1.0) mg/dL AST (10-42) IU/L ALT (10-60) IU/L Alkaline Phosphatase (42-121) IU/L Total Protein (6.7-8.2) g/dl Albumin (3.2-5.5) g/dl Globulin Albumin/Globulin Ratio Amylase (28-100) U/L Lipase (22-51) U/L Urine Color (YELLOW) Urine Appearance (CLEAR) Urine pH (5.0-9.0) Ur Specific [place] (1.005-1.030) Urine Protein (NEGATIVE) Urine Glucose (UA) (NEGATIVE) Urine Ketones (NEGATIVE) Urine Occult Blood (NEGATIVE) Urine Nitrite (NEGATIVE) Urine Bilirubin (NEGATIVE) Urine Urobilinogen (0.2-1.0) mg/dL Ur Leukocyte Esterase (NEGATIVE) Urine RBC /HPF Urine WBC (0-5/HPF) /HPF Ur Epithelial Cells /HPF Amorphous Sediment (0/HPF) /HPF Urine Bacteria (0-FEW/HPF) /HPF Urine Mucus /LPF Urine HCG, Qual Negative Rapid strep; Negative. Meds: Medications Discontinued Medications Generic Name Dose Route Start Last Admin Trade Name Freq PRN Reason Stop Dose Admin Hydromorphone HCl 1 mg 06/05/17 14:23 06/05/17 14:35 Dilaudid IVPUSH 06/05/17 14:24 1 mg ONETIME ONE Administration Sodium Chloride 1,000 mls @ 999 mls/hr 06/05/17 14:23 06/05/17 14:35 Normal Saline IV 06/05/17 15:23 999 mls/hr .BOLUS ONE Administration Ondansetron HCl 4 mg 06/05/17 14:23 06/05/17 14:35 Zofran IV 06/05/17 14:24 4 mg ONETIME ONE Administration Sodium Chloride 10 ml 06/05/17 13:38 06/05/17 13:52 Saline Flush FLUSH 10 ml ASDIRECTED PRN Administration Keep Vein Open - Radiology Interpretation Free Text/Narrative:: CT abdomen and pelvis: Possible noncalcified gallstones (see above). Unenhanced emergency CT scan abdomen and pelvis otherwise unremarkable, i.e., negative. See rad report. Ultrasound abdomen: Negative gallbladder sonogram. Liver, head/body pancreas, and right kidney unremarkable. See rad report. Departure - Departure Time of Disposition: 17:34 Disposition: Home, Self-Care 01 Condition: Good Clinical Impression: Biliary colic Abdominal pain Qualifiers: Abdominal location: upper abdomen, unspecified Qualified Code(s): R10.10 - Upper abdominal pain, unspecified - Discharge Information Instructions: Biliary Colic, Adult, Abdominal Pain, Adult, [id number] Forms: ED Department Discharge Additional Instructions: Rx: Hydrocodone APAP 5mg/325mg *Do not drive while under the influence of this medication. *Pump & dump breast milk while taking this medication. Rx: Zofran 4mg Rx: Ranitidine 150mg Low fat diet with small portion sizes to avoid abdominal pain. Avoid spicy, greasy/fried foods, and dairy products. Follow up in clinic next week with Dr. Jose for recheck, and consideration of a HIDA scan for further gallbladder evaluation. Return to ER if pain becomes severe, or you develop a fever. - My Orders Last 24 Hours: My Active Orders 06/05/17 13:38 Peripheral IV Care [RC] . DIRECTED Peripheral IV Insertion Adult [OM.PC] Stat - Assessment/Plan Last 24 Hours: My Active Orders 06/05/17 13:38 Peripheral IV Care [RC] . DIRECTED Peripheral IV Insertion Adult [OM.PC] Stat
[2017-06-05] MEDS ORDERED: Sodium Chloride 0.9% 10 ML Syringe FLUSH PRN (13:38)
[2017-06-05] MEDS ORDERED: HYDROmorphone 0.5 MG/0.5 ML Syringe IVPUSH ONE (14:23)
[2017-06-05] MEDS ORDERED: Ondansetron 4 MG/2 ML SDV IV ONE (14:23)
[2017-06-05] MEDS ORDERED: Sodium Chloride 0.9% 1,000 ML IV ONE (14:23)
[2017-06-05 14:41] LABS: CHLORIDE,CL 102 mmol/L (101-111); SODIUM,NA 136 mmol/L (135-145)
--- NOTE | 2017-06-05 15:11 | CT ---
Clinical history: 22-year-old 210 pound female with right upper quadrant and right flank pain. Scan technique: Volume acquisition of data emergency unenhanced CT scan of the abdomen and pelvis obt ained without oral or IV contrast were patient was lying supine on the Siemens multi slice scanner [place], [place]. All data archived in the PACS system for storage, refo rmatting and study. Interpretation: 1. Gallbladder clearly demonstrated in the right upper quadrant appears symmetrically distended and w ithout equals a wall inflammation but inhomogeneously dense and suggests possibility of noncalcified intraluminal stones. Ultrasound be the next best least invasive diagnostic modality to consider. 2. Unenhanced Liver is normal size and anatomic configuration with homogeneous density shows no sign of discrete intrahepatic mass lesion or intra/extrahepatic biliary duct dilatation. Stomach, spleen, pancreas and adrenal glands unremarkable. 3. Unenhanced kidneys normal reniform size axis and configuration without cortical mass lesion, nephr olithiasis or obstruction. 4. Normal uterus midline. Ovaries unremarkable. No pelvic or abdominal mass lesion, significant intra peritoneal lymphadenopathy, signs of mechanical bowel obstruction, ascites or free intraperitoneal ai r. Normal retrocecal appendix RLQ. 5. Normal caliber aortoiliac vessels. Lumbar spine unremarkable. Normal heart. Lung bases clear. CONCLUSION: Possible noncalcified gallstones (see above). Unenhanced emergency CT scan abdomen and pelvis otherwise unremarkable i.e. negative.
--- NOTE | 2017-06-05 16:02 | US ---
Clinical history: 22-year-old 210 pound female right upper quadrant pain and "suspicious gallbladder" on recent ED CT abdomen. Interpretation: Gallbladder clearly demonstrated in the right upper quadrant is normal size anatomic configuration with uniformly thin wall and no sign of mucosal wall polyp or mobile dependent intralum inal echogenic "shadowing" gallstones. No pericystic fluid. Normal hepatic size, configuration and homogeneous density. No abnormal dilatation of the intra or ex trahepatic biliary ducts. No ascites. CONCLUSION: Negative gallbladder sonogram. Liver, head/body pancreas, and right kidney unremarkable.
== END 2017-06-05 17:54 | disposition home or self-care (01) ==
LOC: DL.ED 12:38
DX: K80.50 Calculus of bile duct without cholangitis or cholecystitis without obstruction (principal); Z87.891 Personal history of nicotine dependence
CPT/HCPCS: 36415; 74176; 76705; 80053; 81001; 81025; 82150; 83690; 85025; 87081; 87430; 96361; 96374; 96375; 99284; J1170; J2405; J7030; J7050

== ENCOUNTER 2017-09-01 22:19 | Emergency (ER) | payer SELFPAY ==
--- NOTE | 2017-09-01 22:52 | EDM.PDOCBH ---
ED HPI GENERAL MEDICAL PROBLEM - General Chief Complaint: Behavioral/Psych Stated Complaint: [id number] POST AXIETY AND DEPRESSION Time Seen by Provider: 09/01/17 22:35 Source of Information: Reports: Patient, Family History Limitations: Reports: No Limitations - History of Present Illness INITIAL COMMENTS - FREE TEXT/NARRATIVE: This 22 yo female patient reports to the ED due to feelings of post depression. The patient reports that her daughter is 6 months old. The patient reports that she has thoughts of harming herself and her children. The patient was accompanied to the ED by her mother, father and brother. The patient reports that she has been hearing voices telling her to do things. The patient' s father would like to have her talk to a mental health professional to set up continued care and further evaluation. The patient has not made any attempt to harm herself or her children. The patient reports she does want help and wants to feel better. The patient reports her daughter is doing well with no problems. The patient's father is very supportive. The patient requested that the mother and brother were excused from the room during the visit. Onset: Gradual Duration: Constant, Getting Worse Location: Reports: Generalized Quality: Reports: Other Severity: Severe Improves with: Reports: None Worsens with: Reports: None Associated Symptoms: Reports: No Other Symptoms - Related Data Allergies Allergy/AdvReac Type Severity Reaction Status Date / Time No Known Allergies Allergy Verified 09/01/17 22:27 Home Meds: Home Meds . 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: Musculoskeletal History: Reports: None Neurological History: Reports: None Psychiatric History: Reports: Anxiety, Depression Endocrine/Metabolic History: Reports: None Hematologic History: Reports: None Immunologic History: Reports: None Oncologic (Cancer) History: Reports: None Dermatologic History: Reports: Other (See Below) Other Dermatologic History: piercings and tattoos - Infectious Disease History Infectious Disease History: Reports: Chicken Pox - Past Surgical History Head Surgeries/Procedures: Reports: None Social & Family History - Family History Family Medical History: Noncontributory - Tobacco Use Smoking Status *Q: Never Smoker - Caffeine Use Caffeine Use: Reports: Soda - Recreational Drug Use Recreational Drug Use: No - Living Situation & Occupation Living situation: Reports: with Family ED ROS GENERAL - Review of Systems Review Of Systems: ROS reveals no pertinent complaints other than HPI. ED EXAM, BEHAVIORAL HEALTH - Physical Exam Exam: See Below Exam Limited By: No Limitations General Appearance: Alert, WD/WN, Moderate Distress Eye Exam: Bilateral Eye: EOMI, Normal Inspection, PERRL Ears: Normal External Exam, Normal Canal, Hearing Grossly Normal, Normal TMs Nose: Normal Inspection, Normal Mucosa, No Blood Throat/Mouth: Normal Inspection, Normal Lips, Normal Teeth, Normal Gums, Normal Oropharynx, Normal Voice, No Airway Compromise Head: Atraumatic, Normocephalic Neck: Normal Inspection, Supple, Non-Tender, Full Range of Motion Respiratory/Chest: No Respiratory Distress, Lungs Clear, Normal Breath Sounds, No Accessory Muscle Use, Chest Non-Tender Cardiovascular: Normal Peripheral Pulses, Regular Rate, Rhythm, No Edema, No Gallop, No JVD, No Murmur, No Rub GI/Abdominal: Normal Bowel Sounds, Soft, Non-Tender, No Organomegaly, No Distention, No Abnormal Bruit, No Mass (Female) Exam: Deferred Rectal (Female) Exam: Deferred Back Exam: Normal Inspection, Full Range of Motion, NT Extremities: Normal Inspection, Normal Range of Motion, Non-Tender, Normal Capillary Refill, No Pedal Edema Neurological: Alert, Normal Mood/Affect, CN II-XII Intact, Normal Cognition, Normal Gait, Normal Reflexes, No Motor/Sensory Deficits, Oriented x 3 Psychiatric: Alert, Depressed Mood, Tearful Skin Exam: Warm, Dry, Intact, Normal color, No rash COURSE, BEHAVIORAL HEALTH COMP - Course Vital Signs: Last Vital Signs Temp 36.6 C 09/01/17 22:23 Pulse 126 H 09/01/17 22:23 Resp 18 09/01/17 22:23 BP 131/100 H 09/01/17 22:23 Pulse Ox 98 09/01/17 22:23 Orders, Labs, Meds: Medications Discontinued Medications Generic Name Dose Route Start Last Admin Trade Name Freq PRN Reason Stop Dose Admin Lorazepam 0.5 mg 09/02/17 00:02 Ativan PO 09/02/17 00:03 ONETIME ONE Departure - Departure Time of Disposition: 00:04 Disposition: Home, Self-Care 01 Condition: Fair Clinical Impression: Anxiety Depressed Qualifiers: Depression Type: major depressive disorder Major depression recurrence: recurrent Active/Remission status: currently active Major depression episode severity: moderate Qualified Code(s): F33.1 - Major depressive disorder, recurrent, moderate - Discharge Information Instructions: Panic Attack, [id number], Major Depressive Disorder, Adult, [id number] Referrals: Sil Nuñez MD [Primary Care Provider] - Forms: ED Department Discharge Care Plan Goals: The patient was advised of the examination results during the visit. The patient was in agreement with the treatment plan with the [facility] ([facility]). The patient was given an oral dose of Ativan (0.5 mg). The [facility] at 1300. If the patient has any additional symptoms or concerns, the patient should either follow-up with her primary care facility or return to the emergency department.
[2017-09-02] MEDS ORDERED: LORazepam 0.5 MG Tab PO ONE (00:02)
== END 2017-09-02 00:14 | disposition home or self-care (01) ==
LOC: DL.ED 22:19
DX: F32.1 Major depressive disorder, single episode, moderate (principal); F41.9 Anxiety disorder, unspecified
CPT/HCPCS: 99283; 99284; A9270

== ENCOUNTER 2017-12-18 14:22 | Emergency (ER) | payer SELFPAY ==
--- NOTE | 2017-12-18 14:35 | EDM.PDOC ---
ED HPI GENERAL MEDICAL PROBLEM - General Chief Complaint: Allergic Reaction Stated Complaint: ALLERIC REACTION [id number] Time Seen by Provider: 12/18/17 14:35 Source of Information: Reports: Patient, RN, RN Notes Reviewed History Limitations: Reports: No Limitations - History of Present Illness INITIAL COMMENTS - FREE TEXT/NARRATIVE: Patient presents to ER with complaint of cough, shortness of breath, pain in lungs and rash with hives. 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 She states this happens and worsens after she works. Symptoms began last Thursday night, also her first night of work. No illnesses, fever, chills, vomiting or diarrhea. She has had nausea, chest pains with cough and deep breathing. Onset: Gradual Duration: Getting Worse Location: Reports: Generalized Quality: Reports: Ache Severity: Moderate Improves with: Reports: None Worsens with: Reports: None Associated Symptoms: Reports: No Other Symptoms Throat Pain Score (Numeric/FACES): 3 - Related Data Allergies Allergy/AdvReac Type Severity Reaction Status Date / Time No Known Allergies Allergy Verified 12/18/17 14:28 Home Meds: Home Meds FLUoxetine HCl [Prozac] 30 mg PO DAILY 12/18/17 [History] cloNIDine [Catapres] 0.1 mg PO DAILY 12/18/17 [History] hydrOXYzine HCl [Atarax] 25 mg PO BID PRN 12/18/17 [History] Past Medical History HEENT History: Reports: None Cardiovascular History: Reports: None Respiratory History: Reports: None Gastrointestinal History: Reports: None Genitourinary History: Reports: None 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: Musculoskeletal History: Reports: None Neurological History: Reports: None Psychiatric History: Reports: Anxiety, Depression Endocrine/Metabolic History: Reports: None Hematologic History: Reports: None Immunologic History: Reports: None Oncologic (Cancer) History: Reports: None Dermatologic History: Reports: Other (See Below) Other Dermatologic History: piercings and tattoos - Infectious Disease History Infectious Disease History: Reports: Chicken Pox - Past Surgical History Head Surgeries/Procedures: Reports: None Social & Family History - Family History Family Medical History: Noncontributory - Tobacco Use Smoking Status *Q: Current Every Day Smoker Years of Tobacco use: 7 Packs/Tins Daily: 0.5 Second Hand Smoke Exposure: Yes - Caffeine Use Caffeine Use: Reports: Soda - Recreational Drug Use Recreational Drug Use: No - Living Situation & Occupation Living situation: Reports: with Family ED ROS ALLERGIC REACTION - Review of Systems Review Of Systems: ROS reveals no pertinent complaints other than HPI. ED EXAM GENERAL NO PERIP PULSE - Physical Exam Exam: See Below Exam Limited By: No Limitations General Appearance: Alert, WD/WN, No Apparent Distress Eye Exam: Bilateral Eye: EOMI, Normal Inspection, PERRL Ears: Normal External Exam, Normal Canal, Hearing Grossly Normal, Normal TMs Nose: Normal Inspection, Normal Mucosa, No Blood Throat/Mouth: Normal Inspection, Normal Lips, Normal Teeth, Normal Gums, Normal Oropharynx, Normal Voice, No Airway Compromise Head: Atraumatic, Normocephalic Neck: Normal Inspection, Supple, Non-Tender, Full Range of Motion Respiratory/Chest: No Respiratory Distress, Lungs Clear, Normal Breath Sounds, No Accessory Muscle Use, Chest Non-Tender Cardiovascular: Normal Peripheral Pulses, Regular Rate, Rhythm, No Edema, No Gallop, No JVD, No Murmur, No Rub GI/Abdominal: Normal Bowel Sounds, Soft, Non-Tender, No Organomegaly, No Distention, No Abnormal Bruit, No Mass (Female) Exam: Deferred Rectal (Female) Exam: Deferred Back Exam: Normal Inspection, Full Range of Motion, NT Extremities: Normal Inspection, Normal Range of Motion, Non-Tender, Normal Capillary Refill, No Pedal Edema Neurological: Alert, Oriented, CN II-XII Intact, Normal Cognition, Normal Gait, Normal Reflexes, No Motor/Sensory Deficits Psychiatric: Normal Affect, Normal Mood Skin Exam: Other (patchy macular/papular rash to the arms bilaterally) Lymphatic: No Adenopathy Course - Vital Signs Last Recorded V/S: Last Vital Signs Temp 98 F 12/18/17 16:46 Pulse 70 12/18/17 16:46 Resp 18 12/18/17 16:46 BP 95/48 L 12/18/17 16:46 Pulse Ox 99 12/18/17 16:46 - Orders/Labs/Meds Orders: Active Orders 24 hr Category Date Time Status RT Aerosol Therapy [RC] ASDIRECTED Care 12/18/17 14:51 Active Labs: Laboratory Tests 12/18/17 12/18/17 Range/Units 15:00 15:00 WBC 12.0 H (5.0-10.0) 10^3/uL RBC 4.83 (4.2-5.4) 10^6/uL Hgb 13.9 (12.0-16.0) g/dL Hct 42.0 (37.0-47.0) % MCV 87.0 (80-100) fL MCH 28.8 (27.0-34.0) pg MCHC 33.1 (33.0-35.0) g/dL Plt Count 300 (150-450) 10^3/uL Neut % (Auto) 67.2 (42.2-75.2) % Lymph % (Auto) 23.8 (20.5-50.1) % [place] % (Auto) 7.0 (2-8) % Eos % (Auto) 1.7 (1.0-3.0) % Baso % (Auto) 0.3 (0.0-1.0) % Sodium 137 (135-145) mmol/L Potassium 3.4 L (3.6-5.0) mmol/L Chloride 104 (101-111) mmol/L Carbon Dioxide 22.0 (21.0-31.0) mmol/L Anion Gap 14.4 BUN 14 (7-18) mg/dL Creatinine 0.7 (0.6-1.3) mg/dL Est Cr Clr Drug Dosing 107.93 mL/min Estimated GFR (MDRD) > 60 BUN/Creatinine Ratio 20.00 Glucose 80 (74-105) mg/dL Calcium 9.6 (8.4-10.2) mg/dl Total Bilirubin 0.4 (0.2-1.0) mg/dL AST 20 (10-42) IU/L ALT 15 (10-60) IU/L Alkaline Phosphatase 80 (42-121) IU/L Total Protein 8.1 (6.7-8.2) g/dl Albumin 4.6 (3.2-5.5) g/dl Globulin 3.5 Albumin/Globulin Ratio 1.31 Meds: Medications Discontinued Medications Generic Name Dose Route Start Last Admin Trade Name Freq PRN Reason Stop Dose Admin Albuterol 2.5 mg 12/18/17 14:51 12/18/17 14:56 Proventil Neb Soln NEB 12/18/17 14:52 2.5 mg ONETIME ONE Administration Diphenhydramine HCl 25 mg 12/18/17 14:51 12/18/17 15:02 Benadryl IVPUSH 12/18/17 14:52 25 mg ONETIME ONE Administration Sodium Chloride 1,000 mls @ 999 mls/hr 12/18/17 14:51 12/18/17 15:02 Normal Saline IV 12/18/17 15:51 999 mls/hr .BOLUS ONE Administration Methylprednisolone Sodium Succinate 125 mg 12/18/17 14:51 12/18/17 15:04 Solu-Medrol IVPUSH 12/18/17 14:52 125 mg ONETIME ONE Administration Departure - Departure Time of Disposition: 16:40 Disposition: Home, Self-Care 01 Condition: Fair Clinical Impression: Cough, Rash Dyspnea Qualifiers: Dyspnea type: unspecified Qualified Code(s): R06.00 - Dyspnea, unspecified Exposure to respiratory irritant Qualifiers: Encounter type: initial encounter Qualified Code(s): T75.89XA - Other specified effects of external causes, initial encounter - Discharge Information *PRESCRIPTION DRUG MONITORING PROGRAM REVIEWED*: No *COPY OF PRESCRIPTION DRUG MONITORING REPORT IN PATIENT DAGMAR: No Instructions: Shortness of Breath, Adult, [id number], Cough, Adult, Easy-to- Read, Allergies, Adult, [id number], Anaphylactic Reaction, Adult Forms: ED Department Discharge Additional Instructions: Return to the ER with any worsening symptoms Follow up with your primary care facility for further allergy testing Use Zyrtec before going to work May use Benadryl as directed - My Orders Last 24 Hours: My Active Orders 12/18/17 14:51 RT Aerosol Therapy [RC] ASDIRECTED - Assessment/Plan Last 24 Hours: My Active Orders 12/18/17 14:51 RT Aerosol Therapy [RC] ASDIRECTED
[2017-12-18] MEDS ORDERED: Sodium Chloride 0.9% 1,000 ML IV ONE (14:51)
[2017-12-18] MEDS ORDERED: methylPREDNISolone Sodium Succinate 125 MG/2 ML SDV IVPUSH ONE (14:51)
[2017-12-18] MEDS ORDERED: diphenhydrAMINE 50 MG/ML SDV IVPUSH ONE (14:51)
[2017-12-18] MEDS ORDERED: Albuterol 0.083% 2.5 MG/3 ML Neb Soln NEB ONE (14:51)
[2017-12-18 16:05] LABS: ANION GAP 14.4; CHLORIDE,CL 104 mmol/L (101-111); SODIUM,NA 137 mmol/L (135-145)
--- NOTE | 2017-12-18 16:30 | CR ---
Clinical history: 22-year-old female shortness of breath and pain in the chest. Interpretation: No acute cardiopulmonary abnormality. Normal cardiac silhouette and bony thorax. Left-sided aortic arch. No cephalization of flow, signs of alveolar edema or dependent pleural effusion. No lung mass or hilar lymphadenopathy. No focal lobar pneumonia, atelectasis, collapse or pneumothorax.
== END 2017-12-18 16:50 | disposition home or self-care (01) ==
LOC: DL.ED 14:22
DX: T75.89XA Other specified effects of external causes, initial encounter (principal); R05 Cough; R21 Rash and other nonspecific skin eruption; R06.00 Dyspnea, unspecified; F17.210 Nicotine dependence, cigarettes, uncomplicated; Z79.899 Other long term (current) drug therapy
CPT/HCPCS: 36415; 71046; 80053; 85025; 96361; 96374; 96375; 99283; J1200; J2930; J7030; J7613-GY